=== PATIENT | male | born 1990 | race Hispanic/Latino ===

== ENCOUNTER 2017-08-09 13:12 | Inpatient (IN) | payer OTHER ==
[2017-08-09 13:54] LABS: HEMATOCRIT 49.8 % (42.0-52.0); HEMOGLOBIN 17.1 g/dl (13.5-17.5); MEAN CORPUSCULAR HEMOGLOBIN 30.1 pg (27.0-33.0); MEAN CORPUSCULAR HGB CONC 34.3 g/dl (32.0-36.5); MEAN CORPUSCULAR VOLUME 87.5 fl (80.0-96.0); PLATELET COUNT, AUTOMATED 234 10^3/uL (150-450); RED BLOOD COUNT 5.69 10^6/uL (4.30-6.10); RED CELL DISTRIBUTION WIDTH 12.6 % (11.5-14.5); WHITE BLOOD COUNT 8.7 10^3/uL (4.0-10.0)
[2017-08-09 14:37] LABS: ALBUMIN 4.2 GM/DL (3.2-5.2); ALBUMIN/GLOBULIN RATIO 0.95 (1.00-1.93); ALKALINE PHOSPHATASE 55 U/L (45-117); ALT/SGPT 25 U/L (12-78); ANION GAP 6 MEQ/L (8-16); AST/SGOT 24 U/L (7-37); BILIRUBIN,DIRECT 0.2 MG/DL (0.0-0.2); BILIRUBIN,TOTAL 0.6 MG/DL (0.2-1.0); BLOOD UREA NITROGEN 17 MG/DL (7-18); CALCIUM LEVEL 9.4 MG/DL (8.5-10.1); CARBON DIOXIDE LEVEL 28 MEQ/L (21-32); CHLORIDE LEVEL 106 MEQ/L (98-107); CREATININE FOR GFR 1.21 MG/DL (0.70-1.30); ETHYL ALCOHOL (ETHANOL) < 0.003 % (0.000-0.010); GLOMERULAR FILTRATION RATE > 60.0 (>60); GLUCOSE, FASTING 90 MG/DL (70-100); POTASSIUM SERUM 4.4 MEQ/L (3.5-5.1); SALICYLATE LEVEL < 1.7 MG/DL (5.0-30.0); SODIUM LEVEL 140 MEQ/L (136-145); TOTAL PROTEIN 8.6 GM/DL (6.4-8.2)
[2017-08-09 14:44] LABS: AMPHETAMINES LEVEL URINE NEGATIVE (NEGATIVE); BARBITURATES URINE NEGATIVE (NEGATIVE); BENZODIAZEPINES URINE NEGATIVE (NEGATIVE); CANNABINOIDS URINE NEGATIVE (NEGATIVE); COCAINE METABOLITE URINE NEGATIVE (NEGATIVE); METHADONE URINE NEGATIVE (NEGATIVE); OPIATES URINE NEGATIVE (NEGATIVE); PHENCYCLIDINE URINE NEGATIVE (NEGATIVE)
[2017-08-09 14:46] LABS: ACETAMINOPHEN LEVEL < 2.0 UG/ML (10.0-30.0)
[2017-08-09] MEDS ORDERED: MOM 30ML SUSPENSION UDC PO (16:45)
[2017-08-09] MEDS ORDERED: MAALOX 30 ML SUSP *UDC PO (16:45)
[2017-08-09] MEDS: ACETAMINOPHEN TAB 650MG DOSE (2X325MG) PO (20:36)
[2017-08-09] MEDS: traZODone 50 MG TAB PO (20:36)
[2017-08-10] MEDS: INFLUENZA QUADRIVALENT PF VACCINE 0.5ML SYRINGE (90686) IM (09:35)
[2017-08-10] MEDS: TAMOXIFEN CITRATE 10 MG TAB PO (10:02)
[2017-08-10] MEDS: busPIRone 10 MG TAB PO ×3 (13:30→20:13)
[2017-08-10] MEDS: FLUoxetine 10 MG CAP PO (13:31)
[2017-08-10] MEDS: ACETAMINOPHEN TAB 650MG DOSE (2X325MG) PO (20:14)
[2017-08-10] MEDS: traZODone 50 MG TAB PO (20:15)
[2017-08-11] MEDS: FLUoxetine 10 MG CAP PO (08:08)
[2017-08-11] MEDS: TAMOXIFEN CITRATE 10 MG TAB PO (08:08)
[2017-08-11] MEDS: busPIRone 10 MG TAB PO ×3 (08:08→20:03)
[2017-08-11] MEDS: RAMELTEON 8 MG TAB (ROZEREM) PO (20:03)
[2017-08-12] MEDS: FLUoxetine 10 MG CAP PO (09:00)
[2017-08-12] MEDS: busPIRone 10 MG TAB PO ×3 (09:01→20:34)
[2017-08-12] MEDS: TAMOXIFEN CITRATE 10 MG TAB PO (09:01)
[2017-08-12] MEDS: RAMELTEON 8 MG TAB (ROZEREM) PO (20:34)
[2017-08-13] MEDS: busPIRone 10 MG TAB PO ×3 (09:24→20:10)
[2017-08-13] MEDS: FLUoxetine 10 MG CAP PO (09:24)
[2017-08-13] MEDS: TAMOXIFEN CITRATE 10 MG TAB PO (09:24)
[2017-08-13 10:16] LABS: ESTRADIOL 72.1 PG/ML (<39.8)
[2017-08-13 10:16] LABS: LUTEINIZING HORMONE 20.2 mIU/mL (1.5-9.3)
[2017-08-13] MEDS: RAMELTEON 8 MG TAB (ROZEREM) PO (20:10)
[2017-08-14 00:07] LABS: HCG SERUM TUMOR MARKER QUANT < 1 mIU/mL (0-3)
[2017-08-14] MEDS: busPIRone 10 MG TAB PO ×3 (08:29→20:09)
[2017-08-14] MEDS: FLUoxetine 10 MG CAP PO (08:29)
[2017-08-14] MEDS: TAMOXIFEN CITRATE 10 MG TAB PO (08:29)
[2017-08-14] MEDS: ACETAMINOPHEN TAB 650MG DOSE (2X325MG) PO (12:41)
[2017-08-14] MEDS: RAMELTEON 8 MG TAB (ROZEREM) PO (20:09)
[2017-08-15] MEDS: busPIRone 10 MG TAB PO ×3 (08:24→20:14)
[2017-08-15] MEDS: FLUoxetine 10 MG CAP PO (08:24)
[2017-08-15] MEDS: TAMOXIFEN CITRATE 10 MG TAB PO (08:24)
[2017-08-15] MEDS: ACETAMINOPHEN TAB 650MG DOSE (2X325MG) PO (19:03)
[2017-08-15] MEDS: RAMELTEON 8 MG TAB (ROZEREM) PO (20:14)
[2017-08-16] MEDS: FLUoxetine 10 MG CAP PO (08:10)
[2017-08-16] MEDS: TAMOXIFEN CITRATE 10 MG TAB PO (08:10)
[2017-08-16] MEDS: busPIRone 10 MG TAB PO (08:10)
== END 2017-08-16 12:00 | disposition home or self-care (01) | DRG 882 ==
LOC: M ED 13:12 → M ED INP 16:45 → M PSY 19:01
DX: F43.20 Adjustment disorder, unspecified (principal); N62 Hypertrophy of breast; Z79.899 Other long term (current) drug therapy; Z91.5 Personal history of self-harm

== ENCOUNTER → 2017-08-25 | Outpatient (CLI) | payer OTHER | LOC: M RAD 12:29 | DX: N62 Hypertrophy of breast (principal) ==

== ENCOUNTER 2018-03-25 15:26 | Inpatient (IN) | payer OTHER ==
[~2018-03-25] VITALS: Ht 172.7 cm; Wt 89.9 kg
[~2018-03-25 15:26] MED LIST: BUSP10TA PO; PROZ10CA7 PO; ROZE8TAB16 PO; TAMO20TA8 PO
[2018-03-25 16:09] LABS: HEMOGLOBIN 14.5 g/dl (13.5-17.5); MEAN CORPUSCULAR HEMOGLOBIN 30.1 pg (27.0-33.0); MEAN CORPUSCULAR HGB CONC 35.4 g/dl (32.0-36.5); MEAN CORPUSCULAR VOLUME 85.2 fl (80.0-96.0); PLATELET COUNT, AUTOMATED 238 10^3/uL (150-450); RED BLOOD COUNT 4.81 10^6/uL (4.30-6.10); WHITE BLOOD COUNT 7.2 10^3/uL (4.0-10.0)
[2018-03-25 16:50] LABS: ACETAMINOPHEN LEVEL < 2.0 UG/ML (10.0-30.0); ALBUMIN 4.2 GM/DL (3.2-5.2); ALT/SGPT 32 U/L (12-78); BILIRUBIN,DIRECT 0.2 MG/DL (0.0-0.2); BILIRUBIN,TOTAL 0.7 MG/DL (0.2-1.0); BLOOD UREA NITROGEN 18 MG/DL (7-18); CALCIUM LEVEL 9.2 MG/DL (8.5-10.1); CARBON DIOXIDE LEVEL 26 MEQ/L (21-32); CHLORIDE LEVEL 105 MEQ/L (98-107); CREATININE FOR GFR 1.16 MG/DL (0.70-1.30); ETHYL ALCOHOL (ETHANOL) < 0.003 % (0.000-0.010); GLOMERULAR FILTRATION RATE > 60.0 (>60); GLUCOSE, FASTING 94 MG/DL (70-100); SALICYLATE LEVEL < 1.7 MG/DL (5.0-30.0); SODIUM LEVEL 140 MEQ/L (136-145); TOTAL PROTEIN 8.1 GM/DL (6.4-8.2)
[2018-03-25 16:57] LABS: AMPHETAMINES LEVEL URINE NEGATIVE (NEGATIVE); BARBITURATES URINE NEGATIVE (NEGATIVE); BENZODIAZEPINES URINE NEGATIVE (NEGATIVE); CANNABINOIDS URINE NEGATIVE (NEGATIVE); COCAINE METABOLITE URINE NEGATIVE (NEGATIVE); METHADONE URINE NEGATIVE (NEGATIVE); OPIATES URINE NEGATIVE (NEGATIVE); PHENCYCLIDINE URINE NEGATIVE (NEGATIVE)
[2018-03-25] MEDS ORDERED: MAALOX 30 ML SUSP *UDC PO PRN (22:30)
[2018-03-25] MEDS ORDERED: MOM 30ML SUSPENSION UDC PO PRN (22:30)
[2018-03-25] MEDS ORDERED: ACETAMINOPHEN TAB 650MG DOSE (2X325MG) PO PRN (22:30)
[2018-03-25] MEDS ORDERED: ROZE8TAB16 PO (22:45)
[2018-03-25] MEDS ORDERED: BUSP10TA PO (22:45)
[2018-03-25] MEDS ORDERED: PROZ10CA7 PO (22:45)
[2018-03-25 23:33] VITALS: BP 160/86
--- NOTE | 2018-03-26 07:49 | ECGEPIP ---
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
[2018-03-26 12:26] VITALS: BP 135/79
--- NOTE | 2018-03-26 15:51 | NUR ---
Patient seen, note to follow.
[2018-03-26] MEDS: buPROPion 75 MG TAB PO SCH (17:38)
[2018-03-26 18:45] VITALS: BP 136/83
[2018-03-26] MEDS: traZODone 50 MG TAB PO PRN (20:08)
[2018-03-27 07:11] VITALS: BP 137/68
[2018-03-27] MEDS: buPROPion 75 MG TAB PO SCH (09:25)
[2018-03-27 11:33] VITALS: BP 137/69
--- NOTE | 2018-03-27 16:03 | MHHPE ---
DATE OF ADMISSION: 03/26/2018 CHIEF COMPLAINT: Feels depressed. SUBJECTIVE: He is 27 years old. He is . Has no children. He and his live together. 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 He was admitted here earlier this year, sometime in July, please refer to that summary and admission for details regarding the circumstances of the admission at the time. He was discharged at that time on Prozac at 10 mg daily, BuSpar as well. Says attended outpatient care at [facility] and saw them for a couple of months, did well, says stopped going. He says this was mutually agreed, remained on the Prozac and the BuSpar for a short while afterwards and then stopped it. Says continued doing well during the better part of the summer. Says been feeling depressed for the last few weeks, possibly couple of months, particularly after he says his revealed matters to him. He did not go into details, was related to her being faithful to him. He says since then, has had "trust issues," has been feeling depressed and that has worsened recently. He says his is due to leave for a job in [place] in the next couple of weeks, is due to be away until July. He says this raises further questions regarding his ability to trust her fidelity. He says when they talk about this, this leads to his being further depressed and yesterday he felt suicidal, spoke with a friend about it, and then went to take three pills of the BuSpar, which he had from the old prescription. Says went to [facility], was seen there and was sent here for admission. Has suicidal thoughts, though no certain plans at present. 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 Says has also been concerned with lack of sexual desire, erectile dysfunction. Says that it started somewhat when he was on tamoxifen, which he says he was taking for treatment for gynecomastia, which he indicates was not effective. He is no longer on it. Says used Cialis and Viagra later, but with limited effect. He has concern about the above factors. Says they impact his mood. PAST PSYCHIATRIC HISTORY: As indicated above. Please refer to previous summaries. Has had at least one hospitalization. This was here in [place] of this year. MEDICAL HISTORY: Has a history of gynecomastia and has been treated for it in the past. SOCIAL HISTORY: Please refer to previous summaries. He is . They are having current difficulties. He says he wants to continue the relationship and thinks that she does as well. 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 No known aftermath of the deployment. MENTAL STATUS EXAMINATION: He is neat. He is cooperative, though a bit guarded. No agitation. No psychomotor retardation. Affect is restricted in range. Answers questions softly, coherently. He has suicidal thoughts, no firm plans. No homicidal ideas or intents. No evidence of any psychosis. Cognition grossly intact. His judgment is questionable, as is insight. Intellect is average. INVESTIGATIONS: This shows complete blood count within normal limits. Complete metabolic profile within normal limits. Urine toxicology is negative. VITAL SIGNS: Blood pressure 135/79, pulse 98, temperature 98.3. ASSESSMENT: 1. Other specified depressive disorder. 2. Rule out major depressive disorder. 3. Marital difficulties. He is clinically significantly depressed, possibly meets criteria for a major depressive episode. Difficulties related to the marriage have added to the struggles that he has, including with his mood. PLAN: I would suggest resuming an antidepressant. Various options are discussed. He opts for using Wellbutrin, as that may help with his mood, as well as decreased likelihood of sexual side effects. In fact, it has been known to treat sexual side effects secondary to antidepressants like the selective serotonin reuptake inhibitors (SSRIs). I suggest he start at 75 mg daily. The risks and benefits for doing so, as well as the alternatives, which he understands, are discussed. He is to involve in individual, group and milieu therapy. I would suggest that his marital difficulties are addressed, should he wish, while he is here. He will receive a medicine consult, if indicated. He will be discharged with followup once he is stable. The Wellbutrin will be titrated up, but it is preferable starting at a lower dose to see if he tolerates it well. I anticipate a 5-7 day stay. The assessment took about 30 minutes.
[2018-03-27 18:12] VITALS: BP 135/83
[2018-03-27] MEDS: traZODone 50 MG TAB PO PRN (20:31)
[2018-03-27 21:00] VITALS: BP 130/80
[2018-03-28 06:44] VITALS: BP 111/61
[2018-03-28] MEDS: buPROPion 75 MG TAB PO SCH (09:16)
--- NOTE | 2018-03-28 11:01 | HPE ---
DATE OF ADMISSION: 03/25/2018 HISTORY OF PRESENT ILLNESS: Please refer to psychiatric history and evaluation for further details on this admission. This examination and history is intended for medical issues, which may need treatment, followup, or consult on this 27-year-old male. ALLERGIES: No known allergies. PRIMARY CARE PROVIDER: [facility]. PAST MEDICAL HISTORY: 1. Gynecomastia, left breast, for which he had taken estrogen blockers. 2. Anxiety and depression. 3. History of suicidal ideation. 4. History of self-harm. 5. History of overdose 08/02/2017. PAST SURGICAL HISTORY: Anterior cruciate ligament (ACL) repair. 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 He is . Drinks a couple of times a month. Illicit drugs. He has used marijuana in the past, none recently. Tattoos done unprofessionally, three. FAMILY HISTORY: Mother alive. Health status unknown. Father alive. Health status unknown. LABORATORY STUDIES: WBC 7.2, hemoglobin 14.5, hematocrit 41.0, platelets 238. CMP is normal. Salicylates were less than 1.7. Acetaminophen less than 2.0. Toxicology negative. A 10-systems review was done and was unremarkable. EKG showed sinus rhythm, moderate intraventricular conduction delay, nonspecific ST abnormalities. Similar to 08/11/2017. PHYSICAL EXAMINATION: A 27-year-old cooperative male in no acute distress. Temperature 98, pulse 90, respirations 16, blood pressure 136/80, oxygen saturation 100% on room air. Patient is alert and oriented times three. Pupils equal and reactive to light. Extraocular movements (EOMs) intact. Corneae and sclerae clear. Conjunctivae are normal. No facial asymmetry. Pharynx, tongue, gums pink and moist. Tongue is midline. Neck is supple without lymphadenopathy. No thyromegaly. No goiter. Carotids 2+ without bruits. Chest clear to auscultation without wheezing or retraction. Heart is regular. Abdomen benign. Bowel sounds positive. Genitourinary/rectal not done. Extremities show equal strength, full range of motion. No cyanosis, clubbing, or edema. Peripheral pulses equal and palpable bilaterally. Skin is warm and dry. IMPRESSION AND PLAN: Psychiatric plan per psychiatry. History of erectile dysfunction. Follows with [facility]. No acute medical issues. edited: 04/06/2018 1303 tkf MTDD
[2018-03-28 18:00] VITALS: BP 140/76
--- NOTE | 2018-03-28 18:10 | MHIPN ---
DATE: 03/27/2018 CHIEF COMPLAINT: Says he feels better. SUBJECTIVE: Seen for followup in the presence of staff. He says he feels better, and that he is somewhat less depressed, less anxious, and had a good night. MENTAL STATUS EXAM: Neat, cooperative, though a bit guarded. Affect is restricted in range, coherent. Denies active suicidal thoughts or intent, though somewhat vague on that. No firm plans. No homicidal ideas or intent. No evidence of any psychosis. Cognition grossly intact. Judgment and insight are fair at best. ASSESSMENT: Other specified depressive disorder. Rule out major depressive disorder. PLAN: Continue current care, observation. I would suggest a family meeting with his prior to discharge. He says he would like his "private time" prior to agreeing for that but that they had had a good conversation. He will be seeing the treatment team, the assigned psychiatrist tomorrow. Further recommendations will be made. VITAL SIGNS: Blood pressure 135/83, pulse 88, temperature 98.3.
--- NOTE | 2018-03-28 18:54 | MHIPNPDOC ---
[facility] Progress Note Progress Note DATE OF SERVICE: 03/28/18 HISTORY: As per Ed report: "Pt went to [facility] and reported that he was having suicidal thoughts. After assessment at [facility], it was determined that Pt needs to be evaluated further at ED. Pt was transported to [facility] ED via [facility]. Chief Complaint Pt was brought to ED by [facility], after being assessed at [facility] for suicidal ideation. Pt states that he took three 20mg Buspar pills this afternoon because he was suicidal and wanted to . After taking the three pills, Pt decided that he should reach out to someone and called a friend. Pt reports several current stressors in his life. 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 Pt is also having difficulties in his marriage. Pt says he has beed suicidal for the last month because his told him she was unfaithful. Pt has feelings of depression and states he is hopeless. Pt did attempt suicide by overdose in July of this year. Pt was admitted to [facility] after that suicide attempt. Pt began outpatient treatment at [facility] after the admission to [facility], but only continued the treatment for about three months. Pt unable to CFS and has SI with a plan to overdose. Pt was moved to for 6 hour observation due to the overdose of Buspar." VITAL SIGNS: See below. NEW TEST RESULTS: See below CURRENT MEDICATIONS: See below. MENTAL STATUS EXAMINATION: Patient is a 27 year old male, who is alert,dressed in hospital clothes. Speech: Is spontaneous and fluent, low volume, slow, normal tone. Language skills are fair. Thought processes including: concrete, slow, depressed. Thought content: Cognitive distortions, depressive and anxious thoughts about his marital life. Description of abnormal or psychotic thoughts: Patient denies active suicidal thoughts but he has passive suicidal ideation and thinks about frequently. Denies homicidal ideation, denies AV hallucinations, denies thought delusions Judgment: poor. Insight: poor. Orientation: x 3. Recent and remote memory: intact. Attention span and concentration: good. Language: poverty of language. Fund of knowledge: limited. Mood: depressed. Affect: depressed, constricted/flat, congruent with mood.. DIAGNOSES: 1. major Depressive disorder, recurrent, severe. 2. r/o persistent depressive disorder ASSESSMENT: Patient is very depressed, has constricted/flat affect, he is very passive, he has no decision capacity at this time, his thoughts are slow. I have increased his Wellbutrin to 100 mgs PO daily. MANAGEMENT PLAN: As above TIME SPENT: 35 minutes. Vital Signs Vital Signs Date Time Temp Pulse Resp B/P (MAP) Pulse Ox O2 Delivery O2 Flow Rate FiO2 03/28/18 06:44 98.1 66 14 111/61 (78) Room Air 03/25/18 23:18 100 Current Medications Current Medications Acetaminophen (Tylenol Tab) 650 mg Q6HP PRN PO HEADACHE or DISCOMFORT; Start 03/25/18 at 22:30 Al Hydrox/Mg Hydrox/Simethicone (Mylanta) 30 ml Q4HP PRN PO HEARTBURN/INDIGESTION; Start 03/25/18 at 22:30 Bupropion HCl (Wellbutrin) 75 mg DAILY PO Last administered on 03/28/18at 09:16; Start 03/26/18 at 09:00 Home Med (Med Rec Complete!) ASDIRECTED XX ; Start 03/25/18 at 23:00; Stop 03/25/18 at 23:00; Status DC Magnesium Hydroxide (Milk Of Magnesia) 30 ml DAILYPRN PRN PO CONSTIPATION; Start 03/25/18 at 22:30 Trazodone HCl (Desyrel) 50 mg QHSP PRN PO INSOMNIA Last administered on 03/27/18at 20:31; Start 03/25/18 at 22:30 Allergies Coded Allergies: No Known Allergies (Unverified , 08/09/17) JOSEPH GARCIA MD Mar 28, 2018 17:58
[2018-03-28] MEDS: traZODone 50 MG TAB PO PRN (20:15)
[2018-03-29 07:14] VITALS: BP 111/64
[2018-03-29] MEDS: buPROPion 100 MG TAB PO SCH (08:24)
--- NOTE | 2018-03-29 14:24 | MHIPNPDOC ---
[facility] Progress Note Progress Note DATE OF SERVICE: 03/29/18 HISTORY: As per Ed report: "Pt went to [facility] and reported that he was having suicidal thoughts. After assessment at [facility], it was determined that Pt needs to be evaluated further at ED. Pt was transported to [facility] ED via [facility]. Chief Complaint Pt was brought to ED by [facility], after being assessed at [facility] for suicidal ideation. Pt states that he took three 20mg Buspar pills this afternoon because he was suicidal and wanted to . After taking the three pills, Pt decided that he should reach out to someone and called a friend. Pt reports several current stressors in his life. 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 Pt is also having difficulties in his marriage. Pt says he has beed suicidal for the last month because his told him she was unfaithful. Pt has feelings of depression and states he is hopeless. Pt did attempt suicide by overdose in July of this year. Pt was admitted to [facility] after that suicide attempt. Pt began outpatient treatment at [facility] after the admission to [facility], but only continued the treatment for about three months. Pt unable to CFS and has SI with a plan to overdose. Pt was moved to for 6 hour observation due to the overdose of Buspar." VITAL SIGNS: See below. NEW TEST RESULTS: See below CURRENT MEDICATIONS: See below. MENTAL STATUS EXAMINATION: Patient is a 27 year old male, who is alert,dressed in hospital clothes. Speech: Is spontaneous and fluent, low volume, slow, normal tone. Language skills are fair. Thought processes including: concrete, slow, depressed but he tries to smile when I look at him Thought content: Cognitive distortions, depressive and anxious thoughts about his marital life but he has plans to go to [place] after he leaves the [employer], which he thinks it's going to happen in about 10 months Description of abnormal or psychotic thoughts: Patient denies active suicidal thoughts but he has passive suicidal ideation and thinks about frequently. Denies homicidal ideation, denies AV hallucinations, denies thought delusions. He continues to think his marriage depends on his being or not being unfaithful but he is not making any decisions. Judgment: poor. Insight: poor. Orientation: x 3. Recent and remote memory: intact. Attention span and concentration: good. Language: poverty of language. Fund of knowledge: limited. Mood: depressed. Affect: depressed, constricted/flat, congruent with mood.. DIAGNOSES: 1. major Depressive disorder, recurrent, severe. 2. r/o persistent depressive disorder ASSESSMENT: Patient is minimizing his symptoms, he tires to look as if he is not depressed, he says he looked depressed yesterday because he was tired. I think he is minimizing his symptoms because he wants to leave and go back to [place] but I don't think he is ready. His judgment and insight are very poor. MANAGEMENT PLAN: Will continue with Wellbutrin 100 mgs PO daily TIME SPENT: 35 minutes. Vital Signs Vital Signs Date Time Temp Pulse Resp B/P (MAP) Pulse Ox O2 Delivery O2 Flow Rate FiO2 03/29/18 07:14 97.9 67 16 111/64 (80) 03/28/18 06:44 Room Air 03/25/18 23:18 100 Current Medications Current Medications Acetaminophen (Tylenol Tab) 650 mg Q6HP PRN PO HEADACHE or DISCOMFORT; Start 03/25/18 at 22:30 Al Hydrox/Mg Hydrox/Simethicone (Mylanta) 30 ml Q4HP PRN PO HEARTBURN/INDIGESTION; Start 03/25/18 at 22:30 Bupropion HCl (Wellbutrin) 75 mg DAILY PO Last administered on 03/28/18at 09:16; Start 03/26/18 at 09:00; Stop 03/28/18 at 18:45; Status DC Bupropion HCl (Wellbutrin) 100 mg DAILY PO Last administered on 03/29/18at 08:24; Start 03/29/18 at 09:00 Home Med (Med Rec Complete!) ASDIRECTED XX ; Start 03/25/18 at 23:00; Stop 03/25/18 at 23:00; Status DC Magnesium Hydroxide (Milk Of Magnesia) 30 ml DAILYPRN PRN PO CONSTIPATION; Start 03/25/18 at 22:30 Trazodone HCl (Desyrel) 50 mg QHSP PRN PO INSOMNIA Last administered on 03/28/18at 20:15; Start 03/25/18 at 22:30 Allergies Coded Allergies: No Known Allergies (Unverified , 08/09/17) JOSEPH GARCIA MD Mar 29, 2018 14:24
[2018-03-29 18:00] VITALS: BP 140/78
[2018-03-29] MEDS: traZODone 50 MG TAB PO PRN (20:41)
[2018-03-30 06:35] VITALS: BP 122/68
[2018-03-30] MEDS: buPROPion 100 MG TAB PO SCH (08:40)
--- NOTE | 2018-03-30 16:00 | MHIPNPDOC ---
[facility] Progress Note Progress Note DATE OF SERVICE: 03/30/18 HISTORY: As per Ed report: "Pt went to [facility] and reported that he was having suicidal thoughts. After assessment at [facility], it was determined that Pt needs to be evaluated further at ED. Pt was transported to [facility] ED via [facility]. Chief Complaint Pt was brought to ED by [facility], after being assessed at [facility] for suicidal ideation. Pt states that he took three 20mg Buspar pills this afternoon because he was suicidal and wanted to . After taking the three pills, Pt decided that he should reach out to someone and called a friend. Pt reports several current stressors in his life. 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 Pt is also having difficulties in his marriage. Pt says he has beed suicidal for the last month because his told him she was unfaithful. Pt has feelings of depression and states he is hopeless. Pt did attempt suicide by overdose in July of this year. Pt was admitted to [facility] after that suicide attempt. Pt began outpatient treatment at [facility] after the admission to [facility], but only continued the treatment for about three months. Pt unable to CFS and has SI with a plan to overdose. Pt was moved to for 6 hour observation due to the overdose of Buspar." VITAL SIGNS: See below. NEW TEST RESULTS: See below CURRENT MEDICATIONS: See below. MENTAL STATUS EXAMINATION: Patient is a 27 year old male, who is alert,dressed in hospital clothes. Speech: Is spontaneous and fluent, low volume, slow, normal tone. Language skills are fair. Thought processes including: concrete, slow, depressed but he tries to smile when I look at him Thought content: Cognitive distortions, depressive and anxious thoughts about his marital life but he has plans to go to [place] after he leaves the [employer], which he thinks it's going to happen in about 10 months Description of abnormal or psychotic thoughts: Patient denies active or passive suicidal thoughts. Denies homicidal ideation, denies AV hallucinations, denies thought delusions. He continues to think his marriage depends on his being or not being unfaithful but he is not making any decisions. Judgment: poor. Insight: poor. Orientation: x 3. Recent and remote memory: intact. Attention span and concentration: good. Language: poverty of language. Fund of knowledge: limited. Mood: depressed. Affect: depressed, constricted/flat, congruent with mood.. DIAGNOSES: 1. major Depressive disorder, recurrent, severe. 2. r/o persistent depressive disorder ASSESSMENT: His mental status exam has not changed much since yesterday. Patient is depressed but he denies to be suicidal. He has very poor insight and continues to be passive. he is anxious and has very poor tolerance to frustration. After a long conversation he was able to realize that he became extremely deprressed and suicidal because years ago he had a girlfriend who cheated on him with his best friend. He felt betrayed by her and his "friend". He has carried those feelings and has not resolved them. He says his is willing to work on their marital problems. I asked him to ask himself several questions and if he process them he probably will be discharged tomorrow. MANAGEMENT PLAN: Will continue with Wellbutrin 100 mgs PO daily TIME SPENT: 45 minutes. Vital Signs Vital Signs Date Time Temp Pulse Resp B/P (MAP) Pulse Ox O2 Delivery O2 Flow Rate FiO2 03/30/18 06:35 98.6 67 16 122/68 (86) 03/28/18 06:44 Room Air 03/25/18 23:18 100 Current Medications Current Medications Acetaminophen (Tylenol Tab) 650 mg Q6HP PRN PO HEADACHE or DISCOMFORT; Start 03/25/18 at 22:30 Al Hydrox/Mg Hydrox/Simethicone (Mylanta) 30 ml Q4HP PRN PO HEA RTBURN/INDIGESTION; Start 03/25/18 at 22:30 Bupropion HCl (Wellbutrin) 75 mg DAILY PO Last administered on 03/28/18at 09:16; Start 03/26/18 at 09:00; Stop 03/28/18 at 18:45; Status DC Bupropion HCl (Wellbutrin) 100 mg DAILY PO Last administered on 03/30/18at 08:40; Start 03/29/18 at 09:00 Home Med (Med Rec Complete!) ASDIRECTED XX ; Start 03/25/18 at 23:00; Stop 03/25/18 at 23:00; Status DC Magnesium Hydroxide (Milk Of Magnesia) 30 ml DAILYPRN PRN PO CONSTIPATION; Start 03/25/18 at 22:30 Trazodone HCl (Desyrel) 50 mg QHSP PRN PO INSOMNIA Last administered on 03/29/18at 20:41; Start 03/25/18 at 22:30 Allergies Coded Allergies: No Known Allergies (Unverified , 08/09/17) JOSEPH GARCIA MD Mar 30, 2018 16:00
[2018-03-30 18:00] VITALS: BP 110/68
[2018-03-30] MEDS: traZODone 50 MG TAB PO PRN (20:42)
[2018-03-31 06:41] VITALS: BP 122/66
[2018-03-31] MEDS: buPROPion 100 MG TAB PO SCH (08:29)
[2018-03-31] MEDS ORDERED: BUPR50TA PO ×2 (10:10→14:22)
[2018-03-31] MEDS ORDERED: TRAZO50TA PO (10:10)
[2018-03-31] MEDS ORDERED: BUSP10TA PO (14:24)
[2018-03-31] MEDS ORDERED: TRAZ-160 PO (14:26)
--- NOTE | 2018-04-23 18:21 | MHDSPDOC ---
[facility] Discharge Summary Discharge Summary DATE OF ADMISSION: Mar 25, 2018 at 22:26 DATE OF DISCHARGE: Mar 31, 2018 at 13:25 DISCHARGE DIAGNOSES: 1. major Depressive disorder, recurrent, severe. 2. r/o persistent depressive disorder REASON FOR ADMISSION: "Pt went to [facility] and reported that he was having suicidal thoughts. After assessment at [facility], it was determined that Pt needs to be evaluated further at ED. Pt was transported to [facility] ED via [facility]. Chief Complaint Pt was brought to ED by [facility], after being assessed at [facility] for suicidal ideation. Pt states that he took three 20mg Buspar pills this afternoon because he was suicidal and wanted to . After taking the three pills, Pt decided that he should reach out to someone and called a friend. Pt reports several current stressors in his life. 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 Pt is also having difficulties in his marriage. Pt says he has beed suicidal for the last month because his told him she was unfaithful. Pt has feelings of depression and states he is hopeless. Pt did att empt suicide by overdose in July of this year. Pt was admitted to [facility] after that suicide attempt. Pt began outpatient treatment at [facility] after the admission to [facility], but only continued the treatment for about three months. Pt unable to CFS and has SI with a plan to overdose. Pt was moved to for 6 hour observation due to the overdose of Buspar." CONSULTANTS INVOLVED: None TREATMENT AND PROGRESS ON THE UNIT : Since his initial evaluation the patient was observed to be very depressed but he also was not fully insightful about his problem. His had been unfaithful, he had become very depressed but it was not until the last day of hospitalization that he was able to realize that he had become very depressed because his first girlfriend had been unfaithful to him too, with his "best friend". The patient improved because he was not longer suicidal but he was still very depressed, his self esteem is very low, but he has plans for the future, like going for marital counseling with his because he would like to save his marriage. Patient received Trazodone 50 mgs PO PRN for sleep, Wellbutrin 50 mgs PO daily and Buspar 20 mgs PO TID. He had a fair response to medications and he didn't develop medication side effects. HOSPITAL COURSE: As above DISCHARGE ASSESSMENT: Patient was not suicidal, not homicidal and not psychotic at the time of his discharge. MENTAL STATUS EXAMINATION ON DISCHARGE: Patient is a 27 year old male, who is alert,dressed in hospital clothes. Speech: Is spontaneous and fluent, low volume, slow, normal tone. Language skills are fair. Thought processes including: concrete, slow, depressed but he tries to smile when I look at him Thought content: Cognitive distortions, depressive and anxious thoughts about his marital life but he has plans to go to [place] after he leaves the [employer], which he thinks it's going to happen in about 10 months Description of abnormal or psychotic thoughts: Patient denies active or passive suicidal thoughts. Denies homicidal ideation, denies AV hallucinations, denies thought delusions. He continues to think his marriage depends on his being or not being unfaithful but he is not making any decisions. Judgment: poor. Insight: poor. Orientation: x 3. Recent and remote memory: intact. Attention span and concentration: good. Language: poverty of language. Fund of knowledge: limited. Mood: depressed. Affect: depressed, constricted/flat, congruent with mood.. DIAGNOSES: 1. major Depressive disorder, recurrent, severe. 2. r/o persistent depressive disorder MEDICATIONS ON DISCHARGE: Scheduled Bupropion HCl (Bupropion HCl) 50 Mg Halftab, 1 TAB PO DAILY for depression for 7 Days, #7 Buspirone HCl (Buspirone HCl) 10 Mg Tab, 20 MG PO TID for anxiety for 7 Days, #42 Trazodone HCl (Trazodone HCl) 50 Mg Tab, 50 MG PO QHS for insomnia for 7 Days, #7 PLAN/FOLLOWUP ARRANGEMENTS: Follow Up Care Education Label * Medical * Medical Follow Up [facility] * Established With This Provider Yes * Therapist XENIA DELANEY * Date Apr 21, 2018 * Time 10:10 * Follow Up Care Education Label * Mental Health Appt 1 * Mental Health 1st Embedded * Date Apr 05, 2018 * Time 09:00 * Additional information [facility]/AMEYA RIBERA [id number] GRP/120 Follow Up Care Education Label * Mental Health Appt 2 * Mental Health 1st Embedded [facility] * Date Apr 07, 2018 * Time 11:00 * Additional information [facility]/AMEYA VIRGILIO, [id number] FTR/60 The amount of time spent in the coordination of care for this patient was approximately 30 minutes. Medications Scheduled Bupropion HCl (Bupropion HCl) 50 Mg Halftab, 1 TAB PO DAILY for depression for 7 Days, #7 Buspirone HCl (Buspirone HCl) 10 Mg Tab, 20 MG PO TID for anxiety for 7 Days, #42 Trazodone HCl (Trazodone HCl) 50 Mg Tab, 50 MG PO QHS for insomnia for 7 Days, #7 Allergies Coded Allergies: No Known Allergies (Unverified , 08/09/17) JOSEPH GARCIA MD Apr 23, 2018 18:02
== END 2018-03-31 13:25 | disposition home or self-care (01) | DRG 885 ==
LOC: M ED 15:26 → EDBD 15:26 → M ED INP 22:26 → M PSY 23:29
PROVIDERS: ADMIT Psychiatry & Neurology Psychiatry; ATTEND Psychiatry & Neurology Psychiatry
DX: F33.2 Major depressive disorder, recurrent severe without psychotic features (principal); N62 Hypertrophy of breast; N52.9 Male erectile dysfunction, unspecified; Z91.5 Personal history of self-harm; Z63.0 Problems in relationship with spouse or partner

== ENCOUNTER 2018-06-25 06:03 | Emergency (ER) | payer OTHER ==
[~2018-06-25] VITALS: Ht 172.7 cm; Wt 88.6 kg
[~2018-06-25 06:03] MED LIST changes: +BUPR50TA PO; +TRAZ-160 PO; +TRAZO50TA PO
[2018-06-25 06:13] VITALS: BP 131/62
[2018-06-25] MEDS ORDERED: LIDOCAINE 1% MDV 20ML VIAL As Ordered ONE (06:26)
[2018-06-25] MEDS ORDERED: LIDOCAINE 1% MDV 20ML VIAL SC SCH (06:30)
[2018-06-25] MEDS ORDERED: PHENYLEPHRINE INJ 10MG/ML VIAL (J2370) SC ONE (06:30)
[2018-06-25] MEDS ORDERED: TERBUTALINE SULFATE 1 MG/ML VIAL (J3105) SC ONE ×2 (06:30)
[2018-06-25] MEDS ORDERED: LIDOCAINE 1% SDV INJ 30 ML VIAL SC SCH (06:30)
[2018-06-25] MEDS ORDERED: [UNRECOGNIZED DRUG - CODE] IC (06:47)
== END 2018-06-25 06:59 | disposition home or self-care (01) ==
LOC: M ED 06:03
DX: N48.33 Priapism, drug-induced (principal); T46.7X5A Adverse effect of peripheral vasodilators, initial encounter; Z79.899 Other long term (current) drug therapy

== ENCOUNTER → 2018-12-12 | Outpatient (CLI) | payer OTHER ==
[~2018-12-12] MED LIST changes: -TRAZ-160 PO; +TRAZ-252 PO; +TRAZ1TAB10 PO; -TRAZO50TA PO; +[UNRECOGNIZED DRUG - CODE] IC
== END ==
LOC: M SMT 09:45
PROVIDERS: ATTEND Urology
DX: N52.9 Male erectile dysfunction, unspecified (principal)
CPT/HCPCS: 36415; 84403; G0463

== ENCOUNTER → 2019-03-31 | Outpatient (REF) | payer OTHER ==
[2019-03-31 12:24] LABS: WHITE BLOOD COUNT 5.6 10^3/uL (4.0-10.0)
== END ==
LOC: M LABDRAW1 11:43
PROVIDERS: ATTEND Physical Medicine & Rehabilitation
DX: M47.896 Other spondylosis, lumbar region (principal)